=== PATIENT | female | born 1975 | race Caucasian/White ===

== ENCOUNTER 2022-01-28 11:36 | Emergency (ER) | payer BC ==
[~2022-01-28] VITALS: Ht 149.9 cm; Wt 127.0 kg
[2022-01-28] MEDS ORDERED: PREDNISONE20 MG PO (11:44)
[2022-01-28] MEDS ORDERED: HYDROXYZINE HCL25 MG PO (11:44)
[2022-01-28] MEDS ORDERED: DIPHENHYDRAMINE HCL 25 MG CAP PO ONE (12:00)
[2022-01-28] MEDS ORDERED: FAMOTIDINE 20 MG TAB PO ONE (12:00)
[2022-01-28] MEDS ORDERED: PREDNISONE 20 MG TAB PO ONE (12:05)
== END 2022-01-28 12:15 | disposition home or self-care (01) ==
LOC: ER 11:43
DX: L30.9 Dermatitis, unspecified (principal); E11.9 Type 2 diabetes mellitus without complications; E78.5 Hyperlipidemia, unspecified
CPT/HCPCS: 99283; J7512